=== PATIENT | male | born 1950 | race Caucasian/White ===

== ENCOUNTER → 2016-08-18 | Outpatient (CLI) | payer OTHER | LOC: CT 13:32 | DX: R10.9 Unspecified abdominal pain (principal) ==

== ENCOUNTER → 2016-08-19 | Outpatient (CLI) | payer OTHER | LOC: CT 14:03 | DX: R10.9 Unspecified abdominal pain (principal); R10.2 Pelvic and perineal pain ==

== ENCOUNTER → 2016-10-01 | Outpatient (CLI) | payer OTHER ==
[2016-10-01 13:08] LABS: HEMOGLOBIN 16.5 gm/dl (14.0-17.5); RED BLOOD COUNT 5.1 M/UL (4.20-5.50); WHITE BLOOD COUNT 11.4 K/UL (4.5-11.0)
[2016-10-01 13:46] LABS: BUN/CREATININE RATIO 12 (0-10)
== END ==
LOC: US 12:03
PROVIDERS: Internal Medicine Nephrology
DX: N18.3 Chronic kidney disease, stage 3 (moderate) (principal); R31.9 Hematuria, unspecified; E78.5 Hyperlipidemia, unspecified; N28.1 Cyst of kidney, acquired
CPT/HCPCS: 36415; 80053; 82550; 82570; 83970; 84100; 84156; 84550; 85027; 89050

== ENCOUNTER → 2021-03-11 | Outpatient (CLI) | payer MEDICARE ==
[~2021-03-11] MED LIST: CHRONULAC20 GM/30 M PO; CLOPIDOGREL75 MG PO; COZAAR 50MG TAB50 MG PO; COZAAR100 MG PO; COZAAR50 MG PO; CYCLOBENZAPRINE5 MG PO; ECOTRIN81 MG PO; FENOFIBRATE54 MG PO; FLEXERIL 10 MG10 MG PO; FLONASE 0.05% N16 GM; GLUCOPHAGE1000 MG PO; GLUCOTROL XL 5 M5 MG PO; HUMALOG100 UNIT/2 SC; HYDRALAZINE HC100 MG PO; HYDRALAZINE HCL50 MG PO; HYDROCHLOROTHIA25 MG PO; IMDUR ER TAB 6060 MG PO; INCRUSE ELLI62.5 MCG INH; JANUVIA100 MG PO; LANTUS SOL100 UNIT/1 SC; LANTUS100 UNIT/1 SQ; LINZESS145 MCG PO; LOPRESSOR 25 MG25 MG PO; LOPRESSOR 50 MG50 MG PO; LOPRESSOR100 MG PO; LOPRESSOR50 MG PO; MIRALAX17 GM PO; NEURONTIN600 MG PO; NITROSTAT0.4 MG SL; NORVASC10 MG PO; PLETAL 100 MG100 MG PO; PRAVACHOL80 MG PO; PROAIR HFA8.5 GM INH; PROTONIX40 MG PO; PROVENTIL HFA6.7 GM INH; VALSARTAN80 MG PO; VITAMIN B-1100 MG PO; VITAMIN B-121000 MCG PO; VITAMIN D35000 UNI1 PO; ZANAFLEX4 MG PO; ZOLOFT25 MG PO
== END ==
LOC: EXRD 14:33
DX: N18.32 Chronic kidney disease, stage 3b (principal); N28.89 Other specified disorders of kidney and ureter
CPT/HCPCS: 76775

== ENCOUNTER → 2021-10-09 | Outpatient (CLI) | payer MEDICARE | LOC: EXRD 10-07 13:30 | DX: N28.1 Cyst of kidney, acquired (principal) | CPT/HCPCS: 76775 ==